=== PATIENT | male | born 1970 | race Caucasian/White ===

== ENCOUNTER → 2018-11-25 09:36 | Outpatient (POV) | payer OTHER, SELFPAY ==
[2018-11-25 09:45] VITALS: BP 180/87; PULSE 109; RESP 18; O2SAT 98
--- NOTE | 2018-11-26 08:39 | HMH.PMCON ---
Assessment and Plan (1) Facet arthropathy Current visit: Yes Status: Chronic Category: Medical Code(s): M47.819 - Spondylosis without myelopathy or radiculopathy, site unspecified - Assessment and plan all Dx Assessment and Plan for all problems:: We will schedule medial branch block at L3-L4 L4-L5 L5-S1 bilaterally. Patient is not on any blood thinners. Patient and I discussed potential rhizotomy in the future. I will follow-up the patient after his injection reassess his symptoms at that time. Dr. Pichardo has reviewed this note and agrees with this plan of care. This note was dictated using voice recognition software and may contain errors or omissions HPI - Data of Consult Consult date: 11/25/18 Requesting Physician: Charlotte Torres APRN Primary Care Provider: Referral Provider, MD - Consult Narrative Reason for consult: Chronic back pain History of present illness: Mr. Juan is a 48 year old male who presents today for chronic back pain. Patient had an injury after lifting a box in 1989 he states that all activity increases his pain will nothing decreases his pain. Patient has pain in bilateral legs as well. Patient has tried and failed physical therapy along with massage therapy and also acupuncture. He rates his pain a 8 out of 10 today. [facility] Patient was sent today for a medial branch block. Patient's not on any anticoagulation therapy. CC: Charlotte Torres APRN [facility] History I have reviewed the patient's past medical history: Yes Medical History: Reports:: Hyperlipidemia, Hypertension Laterality Cases: Bilateral: Tonsillectomy Amputation: No Fractures: No - *Social History Smoking Status: Never smoker Alcohol Intake: current Alcohol Intake Frequency:: a few times a week *Occupational Status:: other Housing: house *Travel in the last 8 weeks: None - Psychiatric History Expresses thoughts of harming self/others: None Suicide Plan Description: No Plan Family Hx:: Unable to obtain Review of Systems - Review of Systems ROS General: no recent weight change, no fever, no sleep disturbances Respiratory: no cough, no shortness of air, no recurring pulmonary infections Cardiovascular/Peripheral Vascular: No chest pain, No palpitations, no edema, no shortness of breath. Gastrointestinal: no incontinence, normal bowel movements reported Genitourinary: no incontinence Musculoskeletal: Back pain Psychiatric: normal mood/ affect Neurological: [denies weakness in extremities], [denies balance issues] Meds Home Medications Medication Instructions Recorded Confirmed Type Benztropine Mesylate [Cogentin 1mg 0 mg PO DAILY 11/25/18 11/25/18 History tablet] Gemfibrozil [Lopid 600mg tab] 600 mg PO DAILY 11/25/18 11/25/18 History Mirtazapine 15 mg PO DAILY 11/25/18 11/25/18 History Objective Vital signs: Pulse Resp BP Pulse Ox 109 H 18 180/87 H 98 11/25/18 09:45 11/25/18 09:45 11/25/18 09:45 11/25/18 09:45 Narrative: Physical Exam General: Alert and oriented x3, no acute distress, pleasant and cooperative, [on room air] Lungs: Resps E/U, Symmetrical chest expansion, Eyes: PERRL Musculoskeletal: Flexion and extension of lumbar spine somewhat guarded secondary to pain, deep tendon reflexes normal, strength in upper and lower extremities [5/5], [abnormal gait noted] positive Kemps test, positive facet loading lumbar spine Neurological: speech clear, 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
--- NOTE | 2018-11-26 08:45 | P.CONS_ITS ---
Assessment and Plan (1) Facet arthropathy Current visit: Yes Status: Chronic Category: Medical Code(s): M47.819 - Spondylosis without myelopathy or radiculopathy, site unspecified - Assessment and plan all Dx Assessment and Plan for all problems:: We will schedule medial branch block at L3-L4 L4-L5 L5-S1 bilaterally. Patient is not on any blood thinners. Patient and I discussed potential rhizotomy in the future. I will follow-up the patient after his injection reassess his symptoms at that time. Dr. Pichardo has reviewed this note and agrees with this plan of care. This note was dictated using voice recognition software and may contain errors or omissions HPI - Data of Consult Consult date: 11/25/18 Requesting Physician: Charlotte Torres APRN Primary Care Provider: Referral Provider, MD - Consult Narrative Reason for consult: Chronic back pain History of present illness: Mr. Juan is a 48 year old male who presents today for chronic back pain. Patient had an injury after lifting a box in 1989 he states that all activity increases his pain will nothing decreases his pain. Patient has pain in bilateral legs as well. Patient has tried and failed physical therapy along with massage therapy and also acupuncture. He rates his pain a 8 out of 10 today. [facility] Patient was sent today for a medial branch block. Patient's not on any anticoagulation the rapy. CC: Charlotte Torres APRN [facility] History I have reviewed the patient's past medical history: Yes Medical History: Reports:: Hyperlipidemia, Hypertension Laterality Cases: Bilateral: Tonsillectomy Amputation: No Fractures: No - *Social History Smoking Status: Never smoker Alcohol Intake: current Alcohol Intake Frequency:: a few times a week *Occupational Status:: other Housing: house *Travel in the last 8 weeks: None - Psychiatric History Expresses thoughts of harming self/others: None Suicide Plan Description: No Plan Family Hx:: Unable to obtain Review of Systems - Review of Systems ROS General: no recent weight change, no fever, no sleep disturbances Respiratory: no cough, no shortness of air, no recurring pulmonary infections Cardiovascular/Peripheral Vascular: No chest pain, No palpitations, no edema, no shortness of breath. Gastrointestinal: no incontinence, normal bowel movements reported Genitourinary: no incontinence Musculoskeletal: Back pain Psychiatric: normal mood/ affect Neurological: [denies weakness in extremities], [denies balance issues] Meds Home Medications Medication Instructions Recorded Confirmed Type Benztropine Mesylate [Cogentin 1mg 0 mg PO DAILY 11/25/18 11/25/18 History tablet] Gemfibrozil [Lopid 600mg tab] 600 mg PO DAILY 11/25/18 11/25/18 History Mirtazapine 15 mg PO DAILY 11/25/18 11/25/18 History Objective Vital signs: Pulse Resp BP Pulse Ox 109 H 18 180/87 H 98 11/25/18 09:45 11/25/18 09:45 11/25/18 09:45 11/25/18 09:45 Narrative: Physical Exam General: Alert and oriented x3, no acute distress, pleasant and cooperative, [on room air] Lungs: Resps E/U, Symmetrical chest expansion, Eyes: PERRL Musculoskeletal: Flexion and extension of lumbar spine somewhat guarded secondary to pain, deep tendon reflexes no
== END ==
PROVIDERS: Visit Provider Clinical Nurse Specialist Family Health
DX: M47.819 Spondylosis without myelopathy or radiculopathy, site unspecified (principal)
CPT/HCPCS: 99202

== ENCOUNTER → 2018-12-24 11:03 | Outpatient (POV) | payer OTHER, SELFPAY ==
[2018-12-24 11:14] VITALS: BP 117/88; PULSE 101; RESP 18; O2SAT 98; BMI 33.2
--- NOTE | 2018-12-24 11:18 | HMH.PAINSOAP ---
[facility] Pain Management SOAP Note Subjective:: Patient is a pleasant 48-year-old white male who presents today for follow-up after medial branch block. Patient did not receive any relief from this. Patient has had epidurals at the [facility] in the past however they are back in the 90s. Patient and I discussed doing one epidural to see if this is beneficial if it is not we will also discussed neuro stimulation and intrathecal therapy. Patient rates his pain a 7 out of 10 today mostly in his low back and legs. ROS General: no recent weight change, no fever, no sleep disturbances Respiratory: no cough, no shortness of air, no recurring pulmonary infections Cardiovascular/Peripheral Vascular: No chest pain, No palpitations, no edema, no shortness of breath. Gastrointestinal: no incontinence, normal bowel movements reported Genitourinary: no incontinence Musculoskeletal: Back pain, leg pain Psychiatric: normal mood/ affect, Neurological: [denies weakness in extremities], [denies balance issues] Objective:: Physical Exam General: Alert and oriented x3, no acute distress, pleasant and cooperative, [on room air] Lungs: Resps E/U, Symmetrical chest expansion, Eyes: PERRL Musculoskeletal: Flexion and extension of lumbar spine somewhat guarded secondary to pain, deep tendon reflexes normal, strength in upper and lower extremities [5/5], [abnormal gait noted] Neurological: speech clear, group activities aide equal, no gross sensory deficits Assessment:: 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 I did give him information in regards to both intrathecal therapy and neuro stimulation. We will discuss this at his follow-up visit after the epidural if it is not successful. Dr. Pichardo has reviewed this note and agrees with this plan of care. This note was dictated using voice recognition software and may contain errors or omissions
--- NOTE | 2018-12-24 11:22 | P.CONS_ITS ---
[facility] Pain Management SOAP Note Subjective:: Patient is a pleasant 48-year-old white male who presents today for follow-up after medial branch block. Patient did not receive any relief from this. Patient has [facility]als [facility] in the past however they are back in the 90s. Patient and I discussed doing one epidural to see if this is beneficial if it is not we will also discussed neuro stimulation and intrathecal therapy. Patient rates his pain a 7 out of 10 today mostly in his low back and legs. ROS General: no recent weight change, no fever, no sleep disturbances Respiratory: no cough, no shortness of air, no recurring pulmonary infections Cardiovascular/Peripheral Vascular: No chest pain, No palpitations, no edema, no shortness of breath. Gastrointestinal: no incontinence, normal bowel movements reported Genitourinary: no incontinence Musculoskeletal: Back pain, leg pain Psychiatric: normal mood/ affect, Neurological: [denies weakness in extremities], [denies balance issues] Objective:: Physical Exam General: Alert and oriented x3, no acute distress, pleasant and cooperative, [on room air] Lungs: Resps E/U, Symmetrical chest expansion, Eyes: PERRL Musculoskeletal: Flexion and extension of lumbar spine somewhat guarded secondary to pain, deep tendon reflexes normal, strength in upper and lower extremities [5/5], [abnormal gait noted] Neurological: speech clear, 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 I did give him information in regards to both intrathecal therapy and neuro stimulation. We will discuss this at his follow- up visit after the epidural if it is not successful. Dr. Pichardo has reviewed this note and agrees with this plan of care. This note was dictated using voice recognition software and may contain errors or omissions
== END ==
PROVIDERS: Visit Provider Clinical Nurse Specialist Family Health
DX: M51.16 Intervertebral disc disorders with radiculopathy, lumbar region (principal); M54.06 Panniculitis affecting regions of neck and back, lumbar region
CPT/HCPCS: 99212

== ENCOUNTER 2019-01-03 10:52 | Day surgery (SDC) | payer OTHER, SELFPAY ==
[2019-01-03 11:47] VITALS: BP 127/92; PULSE 94; RESP 18; O2SAT 94; BMI 31.7
[2019-01-03 12:05] VITALS: BP 135/87; PULSE 79; RESP 18; O2SAT 99
[2019-01-03 12:10] VITALS: BP 138/95; PULSE 95; RESP 18; O2SAT 98
[2019-01-03 12:12] VITALS: BP 140/85; PULSE 92; RESP 18; O2SAT 99
--- NOTE | 2019-01-03 12:13 | P.PCN_ITS ---
- Procedure Date: 01/03/19 Time: 12:12 Anesthesiologist:: Ceasar Pichardo MD Complications:: None Pre-procedure Diagnosis:: Degenerative disc disease of lumbar spine with lumbar radiculopathy symptoms Post-procedure Diagnosis:: Same Indications for Procedure:: This patient is a pleasant 48-year-old white male who we are treating for low back pain with lumbar radiculopathy symptoms. He is status post medial branch blocks which did not give him much relief of his pain symptoms. He had epidurals several years ago which did help him. He presents for lumbar epidural steroid injection under fluoroscopy today. Procedure Details:: Lumbar epidural steroid injection under fluoroscopy Informed consent was obtained and the risk and benefits of the procedure was ex plained to the patient. The patient was taken to the procedure room. The patient was placed prone on the procedure table. The patient was prepped and draped in sterile fashion. C-arm fluoroscopy was used to view the lumbar spine. Skin and subcutaneous tissues were anesthetized using lidocaine. I placed an 18-gauge epidural needle and advanced into the L4-L5 interspace using fluoroscopic guidance and [id number] to air. After confirmation of needle placement in the epidural space with dye I injected 2 mL of lidocaine 1.5% with Depo-Medrol 80 mg. Patient tolerated the procedure well with no complications. Plan and Disposition:: We will follow-up with him in 2 weeks. Will reevaluate symptoms at that time.
[2019-01-03 12:20] VITALS: BP 143/91; PULSE 94; RESP 18; O2SAT 94
[2019-01-03 12:25] VITALS: BP 143/91; PULSE 94
== END 2019-01-03 12:20 | disposition home or self-care (01) ==
LOC: SC.PAINP 10:54
PROVIDERS: Visit Provider Anesthesiology
DX: M51.16 Intervertebral disc disorders with radiculopathy, lumbar region (principal)
CPT/HCPCS: 62323; J1040; Q9966

== ENCOUNTER → 2019-02-10 12:31 | Outpatient (POV) | payer OTHER, SELFPAY ==
[2019-02-10 12:50] VITALS: BP 135/84; PULSE 84; RESP 18; O2SAT 98; BMI 31.7
--- NOTE | 2019-02-10 13:00 | HMH.PAINSOAP ---
[facility] Pain Management SOAP Note Subjective:: Patient is a pleasant 48-year-old white female who presents today for follow-up after a lumbar epidural steroid injection at L4-L5. He has also had medial branch blocks that did not give him any relief. Patient says he had 20% relief from the epidural and is not interested in any more injection therapy at this time. He is being treated for low back pain with lumbar radicular symptoms. He is continuing a home stretching program, along with NSAIDs. He rates his pain a 7 out of 10 today. Patient says that he has not had any recent imaging of his back and is unable to have an MRI due to an ICD. Review of Systems General: No recent weight changes, no fever, no sleep disturbances Respiratory: No cough, no shortness of air, no recurring pulmonary infections Cardiovascular/peripheral vascular: No chest pain, no palpitations, no edema, no shortness of breath Gastrointestinal: No new onset incontinence, normal bowel movements reported Genitourinary: No new onset incontinence Musculoskeletal: Back pain Psychiatric: Normal mood/affect Neurological: [Denies weakness in extremities], [denies balance issues] Objective:: Physical exam General: Alert and oriented x3, no acute distress, pleasant and cooperative, [on room air] Lungs: Respirations even and unlabored, symmetrical chest expansion Eyes: PERRL Musculoskeletal: Flexion and extension of lumbar spine somewhat guarded secondary to pain, deep tendon reflexes normal, strength in upper and lower extremities [5/5], normal gait noted Neurological: Speech clear, 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 The patient would like to see an orthopedic surgeon, so we will schedule him for a referral. He would like to see someone in the [place] area. He has been instructed to call the office if he has any concerns. Dr. Pichardo has reviewed this note and agrees with this plan of care. This note was dictated using voice recognition software and make contain errors or omissions.
== END ==
PROVIDERS: Visit Provider Clinical Nurse Specialist Family Health
DX: M51.16 Intervertebral disc disorders with radiculopathy, lumbar region (principal); M54.06 Panniculitis affecting regions of neck and back, lumbar region
CPT/HCPCS: 99212

== ENCOUNTER 2019-07-07 08:30 | Outpatient (RCR) | payer OTHER, SELFPAY | END 2019-07-07 08:35 | disposition home or self-care (01) | LOC: PT 08:30 | PROVIDERS: Visit Provider Physical Medicine & Rehabilitation | DX: M25.561 Pain in right knee (principal) | CPT/HCPCS: 97010; 97014; 97033; 97035; 97110; 97163; G0283 ==

== ENCOUNTER 2020-08-26 13:47 | Emergency (ER) | payer OTHER, SELFPAY ==
[2020-08-26 14:40] VITALS: BP 136/101; PULSE 79; RESP 20; TEMP 36.7; O2SAT 98; BMI 31.3
[2020-08-26 15:15] VITALS: BP 136/101; PULSE 79; RESP 20; TEMP 36.7; O2SAT 98
--- NOTE | 2020-08-26 15:15 | PC.NURSE ---
PATIENT CAME OUT OF ROOM AT THIS TIME AND WAS AGITATED THAT HE WAS WAITING. STAFF EXPLAINED TO PATIENT THAT PROVIDER WAS WITH ANOTHER PATIENT. PATIENT STATES I JUST COME HERE FOR A COVID TEST, I DIDN'T COME TO SEE A DOCTOR. I'M LEAVING, YOU ALL CAN DO WHATEVER YOU WANT. I WANT MY TEST PROCESSED THOUGH. PATIENT LEFT AT THAT TIME.
[2020-08-27 07:35] LABS: Covid-19 Nasal PCR Sendout P&C NEGATIVE
== END 2020-08-26 15:16 | disposition left against medical advice (07) ==
LOC: UTC 13:49
PROVIDERS: Emergency Provider Nurse Practitioner
DX: Z20.822 Contact with and (suspected) exposure to COVID-19 (principal)
CPT/HCPCS: U0004